=== PATIENT | male | born 1970 | race Hispanic/Latino ===

== ENCOUNTER → 2021-01-09 | Emergency (ER) | payer SELFPAY ==
[~2021-01-09] VITALS: Ht 165.1 cm; Wt 79.8 kg
== END | disposition home or self-care (01) ==
LOC: ER 14:43
DX: S01.81XA Laceration without foreign body of other part of head, initial encounter (principal); S02.19XA Other fracture of base of skull, initial encounter for closed fracture; W20.8XXA Other cause of strike by thrown, projected or falling object, initial encounter; Y92.008 Other place in unspecified non-institutional (private) residence as the place of occurrence of the external cause
CPT/HCPCS: 70450